=== PATIENT | male | born 1990 | race Caucasian/White ===

== ENCOUNTER 2019-02-12 14:14 | Inpatient (IN) | payer MEDICAID ==
--- NOTE | 2019-02-12 15:13 | EDM.PDOC ---
ED HPI GENERAL MEDICAL PROBLEM - General Chief Complaint: Abdominal Pain Stated Complaint: RIGHT SIDE ABD PAIN Time Seen by Provider: 02/12/19 15:00 Source of Information: Reports: Patient, Old Records History Limitations: Reports: No Limitations - History of Present Illness INITIAL COMMENTS - FREE TEXT/NARRATIVE: 28 yo male with a pHx of gastric bypass presents with RLQ abdominal pain that began on and has progressed. Had diarrhea the first 2 days, but not today. No vomiting, but has mild nausea today. No temp over 100F. No other abdominal surgeries. Pain is increased with coughing. No self tx. Pain is a little worse with eating. Onset: Gradual Onset Date: 02/10/19 Duration: Day(s): (2+), Getting Worse Location: Reports: Abdomen (RLQ) Quality: Reports: Ache Severity: Moderate Improves with: Reports: Rest Worsens with: Reports: Movement Context: Reports: Other (See HPI) Associated Symptoms: Reports: Malaise, Nausea/Vomiting (no vomiting). Denies: Fever/Chills Treatments COPY MESSENGER: Reports: Other (see below) (none) Right Lower Abdomen Pain Score (Numeric/FACES): 7 - Related Data Allergies Allergy/AdvReac Type Severity Reaction Status Date / Time pantoprazole [From Protonix] Allergy Muscle Verified 02/12/19 14:58 Aches prochlorperazine Allergy Muscle Verified 02/12/19 14:58 [From Compazine] Aches Home Meds: Home Meds Citalopram Hydrobromide [Celexa] 40 mg PO DAILY 03/10/18 [History] busPIRone [Buspar] 10 mg PO TID 03/10/18 [History] Dextroamphetamine/Amphetamine [Adderall 30 mg Tablet] 30 mg PO DAILY 02/12/19 [ History] Past Medical History HEENT History: Reports: Impaired Vision Other HEENT History: wears glasses Respiratory History: Reports: Asthma, Sleep Apnea Psychiatric History: Reports: Anxiety, Depression, Psych Hospitalization(s), Suicidal Ideation Endocrine/Metabolic History: Reports: Obesity/BMI 30+ Dermatologic History: Reports: None - Infectious Disease History Infectious Disease History: Reports: Chicken Pox, Influenza - Past Surgical History HEENT Surgical History: Reports: Tonsillectomy Respiratory Surgical History: Reports: None Endocrine Surgical History: Reports: None Dermatological Surgical History: Reports: Other (See Below) Social & Family History - Family History Cardiac: Reports: Bypass, Hypertension, [place] Respiratory: Reports: COPD Musculoskeletal: Reports: Fibromyalgia Endocrine/Metabolic: Reports: Diabetes, type II, Obesity/MBI 30+ - Caffeine Use Caffeine Use: Reports: None ED ROS GENERAL - Review of Systems Review Of Systems: See Below Constitutional: Reports: Malaise HEENT: Reports: No Symptoms Respiratory: Reports: No Symptoms Cardiovascular: Reports: No Symptoms GI/Abdominal: Reports: Abdominal Pain, Diarrhea (not today), Nausea. Denies: Bloody Stool, Vomiting : Reports: No Symptoms Musculoskeletal: Reports: No Symptoms Skin: Reports: No Symptoms Neurological: Reports: No Symptoms Psychiatric: Reports: No Symptoms ED EXAM, GI/ABD - Physical Exam Exam: See Below Exam Limited By: No Limitations General Appearance: Alert, WD/WN, No Apparent Distress Eyes: Bilateral: Normal Appearance Ears: Normal External Exam, Normal Canal, Hearing Grossly Normal, Normal TMs Nose: Normal Inspection, No Blood Throat/Mouth: Normal Inspection, Normal Lips, Normal Oropharynx, Normal Voice, No Airway Compromise Head: Atraumatic, Normocephalic Neck: Normal Inspection Respiratory/Chest: No Respiratory Distress, Lungs Clear, Normal Breath Sounds, No Accessory Muscle Use Cardiovascular: Regular Rate, Rhythm, No Edema GI/Abdominal Exam: Normal Bowel Sounds, Soft, No Distention, Rebound (? very subtle(hurts with coughing)), Tender (RLQ). No: Distended, Guarding, Rigid Back Exam: Normal Inspection. No: CVA Tenderness (R), CVA Tenderness (L) Extremities: Normal Inspection, Normal Range of Motion, Non-Tender, No Pedal Edema Neurological: Alert, Oriented, CN II-XII Intact, Normal Cognition, No Motor/ Sensory Deficits Psychiatric: Normal Affect, Normal Mood Skin Exam: Warm, Dry, Intact, Normal Color, No Rash Course - Vital Signs Text/Narrative:: Dr. Santamaria paged @ 0872h Last Recorded V/S: Last Vital Signs Temp 37.9 C 02/12/19 16:51 Pulse 86 02/12/19 16:51 Resp 16 02/12/19 16:51 BP 120/76 02/12/19 16:51 Pulse Ox 98 02/12/19 16:51 - Orders/Labs/Meds Orders: Active Orders 24 hr Category Date Time Status Iopamidol [Isovue-300 (61%)] Med 02/12/19 16:15 Active 100 ml IV . DIRECTED Sodium Chloride 0.9% [Normal Saline] 100 ml Med 02/12/19 16:15 Active IV ASDIRECTED Medication Orders Sodium Chloride (Normal Saline) 100 mls @ 3 mls/sec IV ASDIRECTED HAI Last Admin: 02/12/19 16:26 Dose: 3 mls/sec Iopamidol (Isovue-300 (61%)) 100 ml IV . DIRECTED HAI Last Admin: 02/12/19 16:28 Dose: 100 ml Labs: Laboratory Tests 02/12/19 02/12/19 Range/Units 15:24 15:24 WBC 11.8 H (4.5-11.0) K/uL RBC 4.45 (4.30-5.90) M/uL Hgb 12.4 (12.0-15.0) g/dL Hct 38.1 L (40.0-54.0) % MCV 86 (80-98) fL MCH 28 (27-31) pg MCHC 33 (32-36) % Plt Count 230 (150-400) K/uL Sodium 140 (140-148) mmol/L Potassium 3.9 (3.6-5.2) mmol/L Chloride 105 (100-108) mmol/L Carbon Dioxide 27 (21-32) mmol/L Anion Gap 8.2 (5.0-14.0) mmol/L BUN 13 (7-18) mg/dL Creatinine 0.8 (0.8-1.3) mg/dL Est Cr Clr Drug Dosing 150.89 mL/min Estimated GFR (MDRD) > 60 (>60) Glucose 88 (74-106) mg/dL Calcium 8.0 L (8.5-10.1) mg/dL C-Reactive Protein 3.67 H (0.0-0.3) mg/dL Meds: Medications Generic Name Dose Route Start Last Admin Trade Name Freq PRN Reason Stop Dose Admin Sodium Chloride 100 mls @ 3 mls/sec 02/12/19 16:15 02/12/19 16:26 Normal Saline IV 3 mls/sec ASDIRECTED HAI Administration Iopamidol 100 ml 02/12/19 16:15 02/12/19 16:28 Isovue-300 (61%) IV 100 ml . DIRECTED HAI Administration Discontinued Medications Generic Name Dose Route Start Last Admin Trade Name Polo PRN Reason Stop Dose Admin Hydromorphone HCl 0.5 mg 02/12/19 15:50 Dilaudid IVPUSH 02/12/19 15:51 ONETIME ONE Metoclopramide HCl 5 mg 02/12/19 15:50 Reglan IVPUSH 02/12/19 15:51 ONETIME ONE Sodium Chloride 10 ml 02/12/19 16:12 02/12/19 16:29 Saline Flush FLUSH 02/12/19 16:13 10 ml ONETIME ONE Administration - Radiology Interpretation Free Text/Narrative:: CT abd/pelvis with IV contrast-acute appendicitis CT Results Date: 02/12/19 CT Results Time: 16:51 Departure - Departure Time of Disposition: 16:55 Disposition: Admitted As Inpatient 66 Condition: Fair Clinical Impression: Acute appendicitis Qualifiers: Acute appendicitis type: with localized peritonitis Appendicitis gangrene presence: unspecified whether gangrene present Appendicitis perforation presence : without perforation Appendicitis abscess presence: without abscess Qualified Code(s): K35.30 - Acute appendicitis with localized peritonitis, without perforation or gangrene - Discharge Information Referrals: PCP,None [Primary Care Provider] - Forms: ED Department Discharge - My Orders Last 24 Hours: My Active Orders 02/12/19 16:15 Iopamidol [Isovue-300 (61%)] 100 ml IV . DIRECTED Sodium Chloride 0.9% [Normal Saline] 100 ml IV ASDIRECTED - Assessment/Plan Last 24 Hours: My Active Orders 02/12/19 16:15 Iopamidol [Isovue-300 (61%)] 100 ml IV . DIRECTED Sodium Chloride 0.9% [Normal Saline] 100 ml IV ASDIRECTED
[2019-02-12] MEDS ORDERED: HYDROmorphone 0.5 MG/0.5 ML Syringe IVPUSH ONE (15:50)
[2019-02-12] MEDS ORDERED: Metoclopramide 10 MG/2 ML SDV IVPUSH ONE (15:50)
[2019-02-12] MEDS ORDERED: Sodium Chloride 0.9% 10 ML Syringe FLUSH ONE (16:12)
[2019-02-12] MEDS ORDERED: Iopamidol 612 MG/ML 100 ML Bottle IV SCH (16:15)
[2019-02-12] MEDS ORDERED: Sodium Chloride 0.9% 100 ML IV SCH (16:15)
--- NOTE | 2019-02-12 16:52 | CRLCT ---
HISTORY: Right lower quadrant abdominal pain. TECHNIQUE: Intravenous contrast enhanced CT of the abdomen and pelvis. 91 mL of Isovue-300 intravenous contrast administered. COMPARISON: No prior. FINDINGS: There are prominent kian appendiceal inflammatory changes with the appendix dilated to approximately 9 mm. Findings compatible with appendicitis. There is no free air. No well-formed periappendiceal collection. Trace pelvic free fluid. Postsurgical changes of gastric bypass. There is no small bowel obstruction. No diverticulitis. - No focal liver parenchymal abnormality. No biliary ductal dilatation. Gallbladder is mildly distended. Spleen and adrenal glands are normal. There is no focal pancreatic abnormality. Symmetric nephrograms. No renal mass or hydronephrosis. Urinary bladder is nondistended. Left pelvic calcification is likely a phlebolith. - There is no abdominal aortic aneurysm. Small mesenteric and retroperitoneal lymph nodes may be reactive. - No infiltrate within the lung bases nor pleural effusion. - No acute bony abnormality. IMPRESSION: 1. Acute appendicitis with prominent periappendiceal inflammatory changes and appendiceal dilatation. No well-formed periappendiceal abscess or free air. 2. Trace pelvic free fluid. 3. Postsurgical changes of gastric bypass. 4. Findings discussed with Dr. Scanlon on 02/12/2019 at 16:50 hours. Dictated by Umer Mueller MD @ 02/12/2019 4:51:23 PM Please note that all CT scans at this facility use dose modulation, iterative reconstruction, and/or weight-based dosing when appropriate to reduce radiation dose to as low as reasonably achievable. Dictated by: Umer Mueller MD @ 02/12/2019 16:51:35 (Electronically Signed)
[2019-02-12] MEDS: HYDROmorphone 1 MG/ML Syringe IVPUSH PRN ×2 (17:30→21:11)
[2019-02-12] MEDS: Acetaminophen 500 MG Tab PO PRN (18:05)
[2019-02-12] MEDS: Dextrose 5%-Lactated Ringers 1,000 ML IV SCH (18:06)
[2019-02-12] MEDS: Ampicillin/Sulbactam Na 3 GM in Sodium Chloride 0.9% 100 ML IV SCH (19:36)
[2019-02-13] MEDS: HYDROmorphone 1 MG/ML Syringe IVPUSH PRN ×8 (00:23→22:29)
[2019-02-13] MEDS: Acetaminophen 500 MG Tab PO PRN (00:23)
[2019-02-13] MEDS: Ampicillin/Sulbactam Na 3 GM in Sodium Chloride 0.9% 100 ML IV SCH ×4 (00:24→18:22)
[2019-02-13] MEDS: Dextrose 5%-Lactated Ringers 1,000 ML IV SCH ×3 (01:06→21:26)
[2019-02-13] MEDS: Ondansetron 4 MG/2 ML SDV IVPUSH PRN ×2 (01:06→22:29)
[2019-02-13] MEDS ORDERED: Bupivacaine 0.5%/EPINEPHrine 1:200,000 50 ML MDV ONE (06:51)
[2019-02-13] MEDS ORDERED: fentaNYL 250 MCG/5 ML SDV ONE (06:57)
[2019-02-13] MEDS ORDERED: Midazolam 1 MG/ML 2 ML SDV ONE (06:57)
[2019-02-13] MEDS ORDERED: Dexamethasone 4 MG/ML SDV ONE (06:58)
[2019-02-13] MEDS ORDERED: Ondansetron 4 MG/2 ML SDV ONE (06:58)
[2019-02-13] MEDS ORDERED: Propofol 200 MG/20 ML SDV ONE (06:58)
[2019-02-13] MEDS ORDERED: Lidocaine 2% 5 ML SDV ONE (06:58)
[2019-02-13] MEDS ORDERED: Rocuronium 50 MG/5 ML Vial ONE (06:58)
[2019-02-13] MEDS ORDERED: Glycopyrrolate 0.2 MG/ML 5 ML MDV ONE (07:36)
[2019-02-13] MEDS ORDERED: Neostigmine Methylsulfate 1 MG/ML 5 ML Syringe ONE (07:36)
[2019-02-13] MEDS ORDERED: Meropenem 500 MG SDV ONE (08:34)
[2019-02-13] MEDS ORDERED: Ketorolac 60 MG/2 ML SDV ONE (08:39)
[2019-02-13] MEDS ORDERED: fentaNYL 100 MCG/2 ML SDV ONE (08:41)
[2019-02-13] MEDS ORDERED: HYDROmorphone 0.5 MG/0.5 ML Syringe IVPUSH PRN (10:02)
[2019-02-13] MEDS: Acetaminophen 500 MG Tab PO SCH ×3 (10:17→21:20)
[2019-02-13] MEDS ORDERED: hydrOXYzine HCl 100 MG/2 ML SDV IM PRN (10:37)
[2019-02-13] MEDS ORDERED: Meperidine PF 100 MG/ML Syringe IM ONE (10:45)
[2019-02-13] MEDS: Docusate Sodium 100 MG Cap PO SCH ×2 (13:29→21:20)
[2019-02-13] MEDS: Celecoxib 200 MG Cap PO SCH (13:30)
[2019-02-13] MEDS: Bisacodyl 5 MG Tab PO SCH (21:20)
--- NOTE | 2019-02-13 22:10 | PN ---
DATE OF SERVICE: 02/13/2019 The patient was admitted overnight with clinical and CT findings of acute appendicitis. Otherwise, he is clinically stable. He is running some fevers at this point. The plan will be to proceed with laparoscopy, laparotomy if necessary and appendectomy, with other procedures as indicated based on the operative findings. Potential risks of the procedure including bleeding, infection, leaks from various GI tract closures, and such were reviewed, and the patient wishes to proceed. Surgery will be undertaken this morning. He will have a TAP block along with ongoing antibiotic administration. Khris Santamaria MD /[id number]
[2019-02-14] MEDS: Ampicillin/Sulbactam Na 3 GM in Sodium Chloride 0.9% 100 ML IV SCH ×3 (00:03→12:29)
[2019-02-14] MEDS: HYDROmorphone 1 MG/ML Syringe IVPUSH PRN ×2 (02:22→05:49)
[2019-02-14] MEDS: Acetaminophen 500 MG Tab PO SCH ×2 (03:09→09:53)
[2019-02-14] MEDS: Celecoxib 200 MG Cap PO SCH (08:07)
[2019-02-14] MEDS: Bisacodyl 5 MG Tab PO SCH (08:08)
[2019-02-14] MEDS: Docusate Sodium 100 MG Cap PO SCH (08:08)
[2019-02-14] MEDS: HYDROmorphone 2 MG Tab PO PRN ×2 (08:09→11:55)
--- NOTE | 2019-02-14 10:27 | PN ---
DATE OF SERVICE: 02/14/2019 SUBJECTIVE: Madi is postoperative day #1. He is up ambulating in the room. He is requesting to go home today. Oral intake 1600, urine output 150, and MYRIAM drain put out 80 mL of a light pink drainage. REVIEW OF SYSTEMS: Remainder of review of systems negative for any pertinent positives and negatives. OBJECTIVE: GENERAL: Madi Garrido is a 28-year-old male. VITAL SIGNS: TPR is 97.2, 49, 16, blood pressure 105/68. HEENT: Negative. NECK: Supple. HEART: Regular rate and rhythm. LUNGS: Clear. ABDOMEN: Dressings dry and intact. Abdominal binder is on. EXTREMITIES: Without peripheral edema. ASSESSMENT: 1. Diagnostic laparoscopy with partial . 2. Drainage of pericecal abscess for postoperative diagnosis perforated appendicitis with inflammation, necrosis extending into cecum and pericecal abscess. Date of surgery 02/13/2019. Surgeon, Khris Santamaria MD. PLAN: 1. Discontinue IV Dilaudid. 2. Dilaudid 2 mg 1 to 2 every 4 hours p.r.n. pain. 3. Dressing off, may shower. 4. Step 2 gastric bypass diet. 5. We will evaluate p.r.n. or in a.m. Bertha Blount PA-C /[id number]
[2019-02-14] MEDS ORDERED: Magnesium Hydroxide 400 MG/5 ML Susp 30 ML Cup PO SCH (13:15)
--- NOTE | 2019-02-14 16:27 | DISCH ---
ADMISSION DIAGNOSES: Acute appendicitis, status post Alejandro-en-Y gastric bypass surgery, unspecified surgical malabsorption, B12 deficiency, attention deficit disorder. DISCHARGE DIAGNOSES: 1. Diagnostic laparoscopy with partial cecectomy. 2. Drainage of pericecal abscess for a postoperative diagnosis of perforated appendicitis with inflammation and necrosis extending into the cecum and perirectal abscess. Date of surgery, 02/13/2019. Surgeon, Khris Santamaria MD. HISTORY: Madi Garrido is a 28-year-old male, who presented to the emergency room with a 2-day history of right lower quadrant abdominal pain. After preoperative evaluation, discussion of possible risks and possible complications, he wished to proceed with surgical procedure. HOSPITAL COURSE: Surgery was on 02/13/2019. He had no operative complications. On postoperative day 1, he was up ambulating, tolerating a clear liquid diet, wished to be changed to oral pain medication, and he did have bowel stimulation. He requested to be discharged to home. PHYSICAL EXAMINATION: GENERAL: Madi is a 28-year-old male. VITAL SIGNS: Height is 6 feet, weight is 196 pounds. TPR 97.5, 60, 16. Blood pressure 116/54. HEENT: Negative. NECK: Supple. HEART: Regular rate and rhythm. LUNGS: Clear. ABDOMEN: Dressings dry and intact. MYRIAM drain intact at time of examination. EXTREMITIES: Without peripheral edema. DISPOSITION: Discharged home. CONDITION: Stable and improving. FOLLOWUP: Followup appointment with Khris Santamaria MD, on 02/20/2019 at 8 a.m. Appointment will be at the Emergency Room at [facility]. HOME MEDICATIONS: 1. Dilaudid 2 mg 1 every 6 hours p.r.n. pain, #28. 2. Tylenol 1000 mg oral q.6 hours p.r.n. pain. 3. Augmentin 875 mg 1 tablet b.i.d. for 5 days. 4. Celebrex 200 mg oral, #14. He is to resume his home medications of citalopram 40 mg oral daily, Adderall 30 mg oral daily, buspirone 10 mg 3 times a day. DIET: Step 2 gastric bypass diet, advance as tolerated. Drink 8 to 10 glasses of water a day. ACTIVITY: No lifting greater than 10 pounds for 4 weeks. OTHER ACTIVITY: Walk at least 6 times daily inside your home. Driving: Do not drive for 1 week and while on pain medication. Shower/bathing: May shower. DISCHARGE INSTRUCTIONS: Notify provider if any fever, increased pain, swelling, redness, nausea, vomiting. Keep site clean and dry. Wear abdominal binder for 2 weeks and then as tolerated. SPECIAL INSTRUCTION: Use incentive spirometer 10 times every hour while awake for 1 week.
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
== END 2019-02-14 14:45 | disposition home or self-care (01) | DRG 329 ==
LOC: JP.ED 14:14 → JP.MS 16:00
PROVIDERS: ADMIT Surgery; ATTEND Surgery
PROC: 0DTJ4ZZ Resection of Appendix, Percutaneous Endoscopic Approach (ICD-10-PCS; principal; 2019-02-13)
PROC: 0DBH4ZZ Excision of Cecum, Percutaneous Endoscopic Approach (ICD-10-PCS; 2019-02-13)
PROC: 0D9W4ZZ Drainage of Peritoneum, Percutaneous Endoscopic Approach (ICD-10-PCS; 2019-02-13)
DX: K35.33 Acute appendicitis with perforation, localized peritonitis, and gangrene, with abscess (principal); K55.049 Acute infarction of large intestine, extent unspecified; J45.909 Unspecified asthma, uncomplicated; H54.7 Unspecified visual loss; G47.30 Sleep apnea, unspecified; F41.9 Anxiety disorder, unspecified; F32.9 Major depressive disorder, single episode, unspecified; E66.9 Obesity, unspecified; Z90.89 Acquired absence of other organs; Z88.8 Allergy status to other drugs, medicaments and biological substances; Z79.899 Other long term (current) drug therapy; Z68.26 Body mass index [BMI] 26.0-26.9, adult
CPT/HCPCS: 36415; 74177; 80048; 85027; 86140; 87070; 87075; 87077; 87186; 87205; 88304; 94762; 99285-25; A9270-GY; J0171; J0295; J1100; J1170; J1885; J2001; J2175; J2185; J2250; J2405; J2704; J2710; J2765; J2795; J3010; J3410; J3490; J7030; J7042; J7050; Q9967

== ENCOUNTER 2019-10-18 16:57 | Inpatient (IN) | payer MEDICAID ==
[2019-10-18] MEDS ORDERED: HYDROmorphone 0.5 MG/0.5 ML Syringe IVPUSH ONE ×3 (17:54→20:33)
[2019-10-18] MEDS ORDERED: Promethazine 12.5 MG in Sodium Chloride 0.9% 50 ML IV STA (17:55)
[2019-10-18] MEDS ORDERED: Lactated Ringers 1,000 ML IV SCH (18:00)
--- NOTE | 2019-10-18 18:05 | EDM.PDOC ---
<Spencer Scanlon G - Last Filed: 10/18/19 17:59> ED HPI GENERAL MEDICAL PROBLEM - General Chief Complaint: Abdominal Pain Stated Complaint: ABD PAIN,NAUSEA Time Seen by Provider: 10/18/19 17:50 Source of Information: Reports: Patient, Family, Old Records, RN History Limitations: Reports: No Limitations - History of Present Illness INITIAL COMMENTS - FREE TEXT/NARRATIVE: 29 yo male presents with abdominal pain that began about 2 hrs ago and has been progressive since its onset. He has nausea as well. These sx's were preceded by diarrhea that began yesterday. He has a pHx of Alejandro-N-Y gastric bypass. No fever. No melena or hematochezia. No hx of pain like this. Onset: Today, Sudden Onset Date: 10/18/19 Duration: Hour(s): (2+), Getting Worse Location: Reports: Abdomen Quality: Reports: Ache Severity: Severe Improves with: Reports: None Worsens with: Reports: Other (? time) Context: Reports: Other (See HPI) Associated Symptoms: Reports: Nausea/Vomiting (no vomiting). Denies: Fever/Chills Treatments [employer]: Reports: Other (see below) (Oral Zofran ) lower back Pain Score (Numeric/FACES): 7 - Related Data Allergies Allergy/AdvReac Type Severity Reaction Status Date / Time pantoprazole [From Protonix] Allergy Muscle Verified 10/18/19 17:22 Aches prochlorperazine Allergy Muscle Verified 10/18/19 17:22 [From Compazine] Aches Home Meds: Home Meds Citalopram Hydrobromide [Celexa] 40 mg PO DAILY 03/10/18 [History] busPIRone [Buspar] 10 mg PO TID PRN 03/10/18 [History] Dextroamphetamine/Amphetamine [Adderall] 30 mg PO DAILY 02/12/19 [History] Acetaminophen [Tylenol Extra Strength] 1,000 mg PO Q6H tablet 02/14/19 [Rx] Past Medical History HEENT History: Reports: Impaired Vision Other HEENT History: wears glasses Respiratory History: Reports: Asthma, Sleep Apnea Musculoskeletal History: Reports: Fracture, Other (See Below) Other Musculoskeletal History: fx collar bone ankle finger Psychiatric History: Reports: Anxiety, Depression, Psych Hospitalization(s), Suicidal Ideation Endocrine/Metabolic History: Reports: Obesity/BMI 30+ Dermatologic History: Reports: None - Infectious Disease History Infectious Disease History: Reports: Chicken Pox, Influenza - Past Surgical History HEENT Surgical History: Reports: Tonsillectomy Respiratory Surgical History: Reports: None GI Surgical History: Reports: Appendectomy, Bariatric Procedure Endocrine Surgical History: Reports: None Social & Family History - Family History Cardiac: Reports: Bypass, Hypertension, [place] Respiratory: Reports: COPD Musculoskeletal: Reports: Fibromyalgia Endocrine/Metabolic: Reports: Diabetes, type II, Obesity/MBI 30+ - Tobacco Use Smoking Status *Q: Current Every Day Smoker Years of Tobacco use: 10 Packs/Tins Daily: 0.2 - Caffeine Use Caffeine Use: Reports: None - Recreational Drug Use Recreational Drug Type: Reports: Marijuana/Hashish Recreational Drug Use Frequency: Weekly ED ROS GENERAL - Review of Systems Review Of Systems: See Below Constitutional: Reports: No Symptoms HEENT: Reports: No Symptoms Respiratory: Reports: No Symptoms Cardiovascular: Reports: No Symptoms Endocrine: Reports: No Symptoms GI/Abdominal: Reports: Abdominal Pain, Diarrhea, Nausea. Denies: Black Stool, Bloody Stool, Constipation, Distension, Flatus, Hematemesis, Melena, Vomiting : Reports: No Symptoms Musculoskeletal: Reports: No Symptoms Skin: Reports: No Symptoms Neurological: Reports: No Symptoms ED EXAM, GI/ABD - Physical Exam Exam: See Below Exam Limited By: No Limitations General Appearance: Alert, WD/WN, No Apparent Distress Eyes: Bilateral: Normal Appearance Ears: Normal External Exam, Normal Canal, Hearing Grossly Normal Nose: Normal Inspection, No Blood Throat/Mouth: Normal Inspection, Normal Lips, Normal Oropharynx, Normal Voice, No Airway Compromise Head: Atraumatic, Normocephalic Neck: Normal Inspection Respiratory/Chest: No Respiratory Distress, Lungs Clear, Normal Breath Sounds, No Accessory Muscle Use Cardiovascular: Regular Rate, Rhythm, No Edema GI/Abdominal Exam: Normal Bowel Sounds, Soft, No Distention, Tender. No: Non- Tender, Distended, Guarding, Rigid, Rebound Back Exam: Normal Inspection Extremities: Normal Inspection, Normal Range of Motion, Non-Tender, No Pedal Edema Neurological: Alert, Oriented, CN II-XII Intact, Normal Cognition, No Motor/Sensory Deficits Psychiatric: Normal Affect, Normal Mood Skin Exam: Warm, Dry, Intact, Normal Color, No Rash Departure - Departure Disposition: Admitted As Inpatient 66 Clinical Impression: Pancreatitis - Discharge Information Referrals: Anselmo Alcantara MD [Primary Care Provider] - Forms: ED Department Discharge Care Plan Goals: admit to Dr Alcantara Sepsis Event Note (ED) - Evaluation Sepsis Screening Result: No Definite Risk <Tammie Albert - Last Filed: 10/18/19 23:12> Course - Vital Signs Last Recorded V/S: Last Vital Signs Temp 35.6 C L 10/18/19 17:28 Pulse 52 L 10/18/19 21:01 Resp 12 10/18/19 18:25 BP 149/93 H 10/18/19 21:01 Pulse Ox 98 10/18/19 18:25 - Orders/Labs/Meds Orders: Active Orders 24 hr Category Date Time Status Abdomen Ltd [US] Stat Exams 10/18/19 22:09 Ordered Iopamidol [Isovue-300 (61%)] Med 10/18/19 20:15 Active 100 ml IV . DIRECTED Lactated Ringers [Ringers, Lactated] 1,000 ml Med 10/18/19 18:00 Active IV ASDIRECTED Sodium Chloride 0.9% [Normal Saline] 1,000 ml Med 10/18/19 19:30 Active IV ASDIRECTED Sodium Chloride 0.9% [Normal Saline] 80 ml Med 10/18/19 20:15 Active IV ASDIRECTED Sodium Chloride 0.9% [Saline Flush] Med 10/18/19 20:13 Active 10 ml FLUSH ASDIRECTED PRN Medication Orders Lactated Ringer's (Ringers, Lactated) 1,000 mls @ 500 mls/hr IV ASDIRECTED [facility] Last Admin: 10/18/19 18:19 Dose: 500 mls/hr Documented by: ARA Sodium Chloride (Normal Saline) 1,000 mls @ 999 mls/hr IV ASDIRECTED HAI Last Admin: 10/18/19 20:39 Dose: 999 mls/hr Documented by: EZIO Sodium Chloride (Normal Saline) 80 mls @ 3 mls/sec IV ASDIRECTED HAI Last Admin: 10/18/19 20:23 Dose: 3 mls/sec Documented by: ISABELA Iopamidol (Isovue-300 (61%)) 100 ml IV . DIRECTED [facility] Last Admin: 10/18/19 20:23 Dose: 100 ml Documented by: ISABELA Sodium Chloride (Saline Flush) 10 ml FLUSH ASDIRECTED PRN PRN Reason: Keep Vein Open Last Admin: 10/18/19 20:23 Dose: 10 ml Documented by: ISABELA Labs: Laboratory Tests 10/18/19 10/18/19 10/18/19 Range/Units 18:04 18:04 18:14 WBC 12.3 H (4.5-11.0) K/uL RBC 4.93 (4.30-5.90) M/uL Hgb 13.8 (12.0-15.0) g/dL Hct 41.7 (40.0-54.0) % MCV 85 (80-98) fL MCH 28 (27-31) pg MCHC 33 (32-36) % Plt Count 196 (150-400) K/uL Sodium (140-148) mmol/L Potassium (3.6-5.2) mmol/L Chloride (100-108) mmol/L Carbon Dioxide (21-32) mmol/L Anion Gap (5.0-14.0) mmol/L BUN (7-18) mg/dL Creatinine (0.8-1.3) mg/dL Est Cr Clr Drug Dosing mL/min Estimated GFR (MDRD) (>60) Glucose (74-106) mg/dL Calcium (8.5-10.1) mg/dL Total Bilirubin (0.2-1.0) mg/dL AST (15-37) U/L ALT (12-78) U/L Alkaline Phosphatase (46-116) U/L C-Reactive Protein 0.05 (0.0-0.3) mg/dL Total Protein (6.4-8.2) g/dL Albumin (3.4-5.0) g/dL Globulin (2.3-3.5) g/dL Albumin/Globulin Ratio (1.2-2.2) Amylase 92 (25-115) U/L Lipase (73-393) U/L Urine Color (YELLOW) Urine Appearance (CLEAR) Urine pH (5.0-8.0) Ur Specific [place] (1.008-1.030) Urine Protein (NEGATIVE) mg/dL Urine Glucose (UA) (NEGATIVE) mg/dL Urine Ketones (NEGATIVE) mg/dL Urine Occult Blood (NEGATIVE) Urine Nitrite (NEGATIVE) Urine Bilirubin (NEGATIVE) Urine Urobilinogen (0.2-1.0) EU/dL Ur Leukocyte Esterase (NEGATIVE) Urine RBC (0-5) Urine WBC (0-5) Ur Epithelial Cells Amorphous Sediment Urine Bacteria Urine Mucus 10/18/19 10/18/19 Range/Units 18:14 18:37 WBC (4.5-11.0) K/uL RBC (4.30-5.90) M/uL Hgb (12.0-15.0) g/dL Hct (40.0-54.0) % MCV (80-98) fL MCH (27-31) pg MCHC (32-36) % Plt Count (150-400) K/uL Sodium 143 (140-148) mmol/L Potassium 3.6 (3.6-5.2) mmol/L Chloride 103 (100-108) mmol/L Carbon Dioxide 29 (21-32) mmol/L Anion Gap 11.0 (5.0-14.0) mmol/L BUN 10 (7-18) mg/dL Creatinine 1.0 (0.8-1.3) mg/dL Est Cr Clr Drug Dosing 119.63 mL/min Estimated GFR (MDRD) > 60 (>60) Glucose 140 H (74-106) mg/dL Calcium 8.6 (8.5-10.1) mg/dL Total Bilirubin 1.0 (0.2-1.0) mg/dL AST 23 (15-37) U/L ALT 29 (12-78) U/L Alkaline Phosphatase 51 (46-116) U/L C-Reactive Protein (0.0-0.3) mg/dL Total Protein 6.9 (6.4-8.2) g/dL Albumin 4.2 (3.4-5.0) g/dL Globulin 2.7 (2.3-3.5) g/dL Albumin/Globulin Ratio 1.6 (1.2-2.2) Amylase (25-115) U/L Lipase 735 H (73-393) U/L Urine Color Yellow (YELLOW) Urine Appearance Clear (CLEAR) Urine pH 6.5 (5.0-8.0) Ur Specific [place] >= 1.030 (1.008-1.030) Urine Protein Negative (NEGATIVE) mg/dL Urine Glucose (UA) Negative (NEGATIVE) mg/dL Urine Ketones Negative (NEGATIVE) mg/dL Urine Occult Blood Negative (NEGATIVE) Urine Nitrite Negative (NEGATIVE) Urine Bilirubin Negative (NEGATIVE) Urine Urobilinogen 2.0 H (0.2-1.0) EU/dL Ur Leukocyte Esterase Negative (NEGATIVE) Urine RBC 0-5 (0-5) Urine WBC 0-5 (0-5) Ur Epithelial Cells Few Amorphous Sediment Not seen Urine Bacteria Rare Urine Mucus Few Meds: Medications Generic Name Dose Route Start Last Admin Trade Name Polo PRN Reason Stop Dose Admin Lactated Ringer's 1,000 mls @ 500 mls/hr 10/18/19 18:00 10/18/19 18:19 Ringers, Lactated IV 500 mls/hr ASDIRECTED HAI Administration Sodium Chloride 1,000 mls @ 999 mls/hr 10/18/19 19:30 10/18/19 20:39 Normal Saline IV 999 mls/hr ASDIRECTED HAI Administration Sodium Chloride 80 mls @ 3 mls/sec 10/18/19 20:15 10/18/19 20:23 Normal Saline IV 3 mls/sec ASDIRECTED HAI Administration Iopamidol 100 ml 10/18/19 20:15 10/18/19 20:23 Isovue-300 (61%) IV 100 ml . DIRECTED HAI Administration Sodium Chloride 10 ml 10/18/19 20:13 10/18/19 20:23 Saline Flush FLUSH 10 ml ASDIRECTED PRN Administration Keep Vein Open Discontinued Medications Generic Name Dose Route Start Last Admin Trade Name Polo PRN Reason Stop Dose Admin Hydromorphone HCl 0.5 mg 10/18/19 17:54 10/18/19 18:20 Dilaudid IVPUSH 10/18/19 17:55 0.5 mg ONETIME ONE Administration Hydromorphone HCl 0.5 mg 10/18/19 18:36 10/18/19 18:44 Dilaudid IVPUSH 10/18/19 18:37 0.5 mg ONETIME ONE Administration Hydromorphone HCl 0.5 mg 10/18/19 20:33 10/18/19 20:39 Dilaudid IVPUSH 10/18/19 20:34 0.5 mg ONETIME ONE Administration Promethazine HCl 12.5 mg/ 50.5 mls @ 200 mls/hr 10/18/19 17:55 10/18/19 18:22 Sodium Chloride IV 10/18/19 18:10 200 mls/hr NOW STA Administration - Re-Assessments/Exams Free Text/Narrative Re-Assessment/Exam: 10/18/19 18:42 pt continued to have alot of abdomanal pain. He has received dilaudid .5 iv. This was repeated. The ua was found to be neg. He is dehydrated. 10/18/19 18:56 10/18/19 19:48 pt has a elevated lipase. His amylase is normal. 10/18/19 22:10 Pt had a cat scan which showed a distended gall bladder. He also has some venous lymphatic congestion in the region of the superior mesenteric vessels. 10/18/19 23:11 Us showed some small stones in rhe sac portion of the gb not in the neck. He gb wall is not thick. Departure - Departure Time of Disposition: 22:14 Condition: Fair Sepsis Event Note (ED) - Focused Exam Vital Signs: Vital Signs Temp Pulse Resp BP Pulse Ox 10/18/19 21:01 52 L 149/93 H 10/18/19 18:25 53 L 12 116/78 98 10/18/19 17:28 35.6 C L 55 L 20 163/89 H 100 10/18/19 17:17 35.6 C L 55 L 20 163/89 H 100 - My Orders Last 24 Hours: My Active Orders 10/18/19 19:30 Sodium Chloride 0.9% [Normal Saline] 1,000 ml IV ASDIRECTED 10/18/19 22:09 Abdomen Ltd [US] Stat - Assessment/Plan Last 24 Hours: My Active Orders 10/18/19 19:30 Sodium Chloride 0.9% [Normal Saline] 1,000 ml IV ASDIRECTED 10/18/19 22:09 Abdomen Ltd [US] Stat
[2019-10-18] MEDS ORDERED: Sodium Chloride 0.9% 1,000 ML IV SCH (19:30)
[2019-10-18] MEDS ORDERED: Sodium Chloride 0.9% 10 ML Syringe FLUSH PRN (20:13)
[2019-10-18] MEDS ORDERED: Sodium Chloride 0.9% 80 ML IV SCH (20:15)
[2019-10-18] MEDS ORDERED: Iopamidol 612 MG/ML 100 ML Bottle IV SCH (20:15)
--- NOTE | 2019-10-18 21:26 | CRLCT ---
INDICATION: Upper abdominal pain TECHNIQUE: Axial images were obtained from the diaphragm to the pubic symphysis. Reformats were obtained in the coronal and sagittal plane. IV Contrast: 100 cc Isovue-300 Oral Contrast: None COMPARISON: Abdomen and pelvis CT 02/12/2019 FINDINGS: Lower chest: Unremarkable. Liver: Normal in contour with focal fat adjacent to the falciform ligament. Gallbladder and bile ducts: Distended without gallbladder wall thickening or pericholecystic inflammation. Spleen: Unremarkable. Normal in size without mass. Pancreas: Unremarkable. No mass or inflammation. Adrenal glands: Unremarkable. No nodules. Kidneys: Unremarkable. No masses, stones, or hydronephrosis. Vasculature: No abdominal aortic aneurysm note is made of some swirling of the superior mesenteric vasculature near the root of the mesentery. Superior mesenteric artery appears widely patent although the superior mesenteric vein appears narrowed distally (3, 44-47). GI tract: Status post gastric bypass. No dilated loops of large or small intestine. Surgical clips near the cecal tip. Very slight fat stranding along the root of the mesentery. Pelvis: Unremarkable. Bones: Unremarkable for age. IMPRESSION: 1. Status post gastric bypass without evidence of obstruction. 2. Mild swirling of the superior mesenteric vasculature with some narrowing of the superior mesenteric vein and slight adjacent fat stranding suggesting some venous/lymphatic congestion in this region. Unremarkable bowel perfusion however. Please note that all CT scans at this facility use dose modulation, iterative reconstruction, and/or weight-based dosing when appropriate to reduce radiation dose to as low as reasonably achievable. Dictated by Panakj Tse MD @ Oct 18 2019 9:10PM Signed by Dr. Pankaj Tse @ Oct 18 2019 9:25PM
--- NOTE | 2019-10-18 23:58 | CRLUS ---
INDICATION: Abdominal pain TECHNIQUE: Ultrasound abdomen limited. Sonographic images of the right upper quadrant were obtained using barlow-scale and color Doppler images. COMPARISON: A CT scan from the same date FINDINGS: Liver: Unremarkable size and echotexture. No masses. No intrahepatic biliary dilatation. Gallbladder: Cholelithiasis within a distended gallbladder. No significant gallbladder wall thickening demonstrated. Sonographic Argueta`s sign cannot be assessed due to premedication. Common bile duct: 3 mm. Pancreas: Partially obscured. No discrete abnormality seen in the visualized portions. Right kidney: 11.8 x 5.2 x 5.7 cm. Unremarkable echotexture and cortex. No masses, stones, or hydronephrosis. Vasculature: Visualized upper abdominal aorta and IVC are within normal limits. IMPRESSION: Cholelithiasis within a distended gallbladder, without significant gallbladder wall thickening. Dictated by Camilo Calzada MD @ 10/18/2019 11:56:46 PM Dictated by: Camilo Calzada MD @ 10/18/2019 23:57:25 (Electronically Signed)
[2019-10-19] MEDS ORDERED: diphenhydrAMINE 50 MG/ML SDV IVPUSH PRN
[2019-10-19] MEDS ORDERED: Ondansetron 4 MG/2 ML SDV IVPUSH PRN
[2019-10-19] MEDS: HYDROmorphone/Normal Saline 15 MG/30 ML PCA IV SCH ×2 (00:48→20:11)
[2019-10-19] MEDS: Ondansetron 4 MG/2 ML SDV IVPUSH PRN ×2 (00:54→04:07)
--- NOTE | 2019-10-19 02:29 | HP ---
IDENTIFYING DATA: Madi Garrido is a 29-year-old single male from [place], [place]. CHIEF COMPLAINT: Abdominal pain. HISTORY OF PRESENT ILLNESS: Young adult male has noted history of previous morbid obesity with Alejandro-en-Y gastric bypass surgery and resultant weight loss with surgical treatment approximately 2 years ago. He notes he was at the workplace this morning when he had development of a mild abdominal upset and nausea, and as symptoms of nausea worsened and generalized mid upper abdominal pain developed, he left work and returned home. He had development of retching without emesis and the pain became more pronounced. He then had family transfer him to the emergency room for evaluation. He notes pain is in the mid upper abdomen, some aching across the mid flanks bilaterally. He has had no fevers, chills, emesis, hematemesis, melena, or hematochezia. He has had loose stools without kim watery diarrhea. Denies a history of previous or similar occurrence. No history of peptic ulcer disease, hepatitis, jaundice, or gallbladder disease. Has had previous appendectomy. Denies recent use of alcohol. No recent use of nonsteroidal agents, minimal use of caffeine, less than 1 caffeinated beverage per day. Routine use of medications without other [id number] supplements. Has not had recent abdominal trauma by his report. PAST MEDICAL HISTORY: History of morbid obesity with Alejandro-en-Y bariatric surgery. Additionally, he has a history of depressive illness with previous hospitalization for depression, suicidal ideation, now stable. ALLERGIES: REPORTED TO PANTOPRAZOLE AND COMPAZINE WITH GENERALIZED MUSCLE ACHES NOTED. CURRENT MEDICATIONS: Include: 1. Citalopram 40 mg daily. 2. BuSpar 10 mg t.i.d. p.r.n. anxiety. 3. Adderall XR 30 mg daily. 4. Acetaminophen 1000 mg q.6 hours p.r.n. discomfort. HABITS: Smoker of 1 to 3 cigarettes daily. Caffeine use of less than 1 cup of coffee daily. Infrequent use of alcohol. Does note periodic use of marijuana without other illicit drug use. 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 He is working routinely at the local [employer], residing with family at their residence in [facility]. FAMILY HISTORY: Mother has a history of obesity with bariatric surgery. Father with a history of ischemic heart disease and chronic back disease. No recent familial history of COVID disease or known exposure. REVIEW OF SYSTEMS: NEUROLOGIC: Depressive illness controlled with pharmacologic therapy. No recent worsening dysthymic symptoms. He does wear corrective lenses. No history of stroke, seizures, or chronic headaches. CARDIAC: No history of hypertension, diabetes, congenital heart disease, rheumatic fever, murmur, chest pain, syncope, or [place]. RESPIRATORY: No asthma, emphysema, chronic cough, COVID exposure, or recent URIs. GI: As above. : No urinary urgency, frequency, or incontinence. No history of chronic renal disease. MUSCULOSKELETAL: Without arthralgias. PHYSICAL EXAMINATION: GENERAL: Appearance is that of an adult male in moderate distress secondary to abdominal discomfort. VITAL SIGNS: Initial vitals, temperature 35.6 degrees centigrade, pulse 52, respiratory rate 12, blood pressure 149/93, O2 saturation is 98% on room air. HEENT: Hearing is intact. No facial asymmetry. Sclerae anicteric. Extraocular eye movements intact. No nasal congestion. Oral mucosa is dry in appearance, noninflamed. NECK: Brisk carotid pulses. No thyromegaly, JVD, or stridor. No nuchal rigidity. LUNGS: Clear, resonant, non-tachypneic with symmetrical aeration. HEART: Regular without murmurs or gallops noted. ABDOMEN: Nondistended. Active sounds. No obvious organomegaly. No CVA tenderness. He has moderate discomfort in the upper abdomen with palpation. No guarding or rebound noted. No lower abdominal pain. Good femoral pulses. No abdominal bruits. GENITOURINARY and RECTAL: Omitted. EXTREMITIES: Warm and pink. Good turgor. Good arterial pulses. Brisk capillary refill. Non-diaphoretic. LABORATORY DATA: Labs on admission, WBC mildly elevated at 12.3, hemoglobin 13.8, hematocrit 41.7, platelet count 196,000. C-reactive protein within normal range at 0.05. Amylase 92, lipase elevated at 735. Sodium 143, potassium 3.6, BUN 10, creatinine 1, GFR greater than 60, glucose 140, calcium 8.6, alkaline phosphatase 51, AST 23, ALT 29. Urinalysis is concentrated with specific gravity of greater than 1.030, negative protein, glucose, ketones, nitrites, and leukocyte esterase. Negative dipstick for rbc's and wbc's. IMAGING: CT of the abdomen, distended gallbladder without acute inflammatory changes. Some suggested venous lymphatic congestion in the area of superior mesenteric vessels in this adult male with previous Alejandro-en-Y bariatric surgery. No obstructive process. No acute inflammatory changes are evident. No obvious ductal dilatation of the hepatobiliary system. Subsequent ultrasound suggested small stones in the gallbladder sac without evidence of stones in the neck or biliary tree. No thickening of the gallbladder wall. No obvious changes of the pancreas. IMPRESSION: 1. Abdominal pain, nausea and emesis with elevated lipase suggesting possible acute idiopathic pancreatitis. 2. History of Alejandro-en-Y bariatric surgery for morbid obesity. 3. Attention deficit disorder with chronic Adderall therapies. 4. Previous surgeries include Alejandro-en-Y bariatric surgery and appendectomy. 5. Minimal tobacco use. PLAN: The patient is admitted to the medical floor for continued supportive care. IV fluids, antiemetics, and analgesic therapies will be provided as well as ice chips to wet the mouth. We will hold on oral nutritional intake. Follow up labs with CBC, metabolic panel, and lipase are requested in a.m. and if labs show spontaneous correction and pain is diminishing, we will then advance diet slowly to standard nutritional intake. Full code status is maintained. Allow activity up as tolerated with assistance. We will follow up in the a.m. for further management of his acute abdominal presentation. Bhanu Alcantara MD /[id number]
[2019-10-19] MEDS ORDERED: Ketorolac 30 MG/ML SDV IVPUSH PRN (05:21)
[2019-10-19] MEDS ORDERED: Ketorolac 30 MG/ML SDV IVPUSH ONE (05:21)
[2019-10-19] MEDS: Sodium Chloride 0.9% 1,000 ML IV SCH ×3 (05:33→13:17)
[2019-10-19] MEDS: hydrOXYzine HCL 100 MG/2 ML SDV IM PRN ×3 (07:56→23:04)
[2019-10-19] MEDS: diphenhydrAMINE 25 MG Cap PO PRN ×2 (08:55→15:16)
[2019-10-19] MEDS ORDERED: Non-Formulary Medication 1 Each (Dextroamphetamine/Amphetamine [Adderall] 30 MG) PO SCH (09:00)
[2019-10-19] MEDS: Amphetamine/Dextroamphetamine Salts 10 MG Cap.ER PO SCH (09:44)
[2019-10-19] MEDS: Citalopram 20 MG Tab PO SCH (09:44)
[2019-10-19] MEDS ORDERED: MVI, Adult with Vitamin K 10 ML, Thiamine 200 MG, Chromium/Copper/Mang/Selen/Zn 1 ML in... IV ONE ×4 (10:30)
--- NOTE | 2019-10-19 14:26 | PN ---
DATE OF SERVICE: 10/19/2019 SUBJECTIVE: Madi was admitted through the ER on 10/18/2019. Madi was working and developed severe mid abdominal pain, nausea, and dry heaves. He was brought to the emergency room and later admitted after workup which revealed pancreatitis and distended gallbladder. Pain has been controlled with [employer], but then he reports that he wakes up in pain every 10 minutes having to push the [employer] button, so has not gotten much sleep. He did get a shot of Toradol ordered by Anselmo Alcantara MD, during the night. Remains afebrile. He is n.p.o. Labs revealed amylase of 92 down to 49 and lipase 735 down to 274 this a.m. REVIEW OF SYSTEM: HEENT: Negative. NECK: Negative. CHEST: No chest pain or shortness of breath. LUNGS: No cough. ABDOMEN: No further nausea or vomiting. Pain is mainly in the back between shoulder blades and lower flank area, mainly on the right. EXTREMITIES: No joint pain or swelling. NEUROLOGIC: No headaches, dizziness, loss of coordination. PSYCHIATRIC: Stable. OBJECTIVE: GENERAL: Madi Garrido is a 29-year-old male. Height is 6 feet, weight is 185 pounds. VITAL SIGNS: TPR at 0801, 97.4, 61, 16. Blood pressure 131/82. HEENT: Negative. NECK: Supple. HEART: Regular rate and rhythm. LUNGS: Clear. ABDOMEN: Generalized tenderness in all 4 quadrants. BACK: Tender to palpate in the left CVA area. EXTREMITIES: Without peripheral edema. SKIN: Without rash. NEUROLOGIC: Intact. PSYCHIATRIC: Negative. ASSESSMENT: 1. Pancreatitis. 2. Distended gallbladder. 3. Mesenteric swirling. 4. Status post Alejandro-en-Y gastric bypass surgery. 5. Unspecified surgical malabsorption. 6. B12 deficiency. 7. Vitamin D deficiency. 8. Attention deficit disorder. 9. Depression. PLAN: 1. Schedule and have consent signed for laparoscopic cholecystectomy with possible lysis of adhesions and small bowel resection, general anesthesia with TAP block, ketamine bolus and drip and magnesium bolus and drip, , 10/20/2019. Case to follow. Khris Santamaria MD. N.p.o. after midnight. 2. Clear liquid diet. 3. Check CMP now with ferritin, folic acid, vitamin B12, and thiamine. Check amylase, lipase, CBC, CMP, magnesium, phosphorus in a.m. Cefoxitin 2 g IV, on-call to OR in a.m. 4. Vistaril 100 mg IM q.6 hours p.r.n. pain. 5. Restart home medication, buspirone 10 mg p.o. t.i.d. p.r.n. anxiety and Adderall 30 mg p.o. daily. 6. Clear liquid diet and we will evaluate p.r.n. or in a.m. Bertha Blount PA-C /[id number]
--- NOTE | 2019-10-19 16:29 | PN ---
DATE OF SERVICE: 10/19/2019 SUBJECTIVE: A 29-year-old male was admitted with abdominal pain, nausea, and retching yesterday through the night. He had ongoing abdominal discomfort now showing interval improvement. He has had no emesis with previous Alejandro-en-Y bariatric surgery. He is passing flatus. Pain is managed with Dilaudid. Administration of Vistaril has led to improvement in his nausea. He is taking sips of clear liquids with advancement provided by [facility]. Ultrasound yesterday revealed small gallstones in the body of the gallbladder with a tortuous mesenteric vein suggesting possible small-bowel volvulus. OBJECTIVE: VITAL SIGNS: Temperature 36.3, pulse 61, blood pressure 131/82, , respiratory rate 16. GENERAL: He is awake, attentive. Some pruritus and mild inflammation of the face is noted today with generalized mild itching of the truncal area. LABORATORY DATA: Followup hemoglobin 12.9, WBC 8.7, platelet count 174,000. Sodium 142, potassium 3.8, glucose 96, calcium 8.3, creatinine 0.8, with GFR greater than 90. Lipase has shown correction at 274. IMPRESSION AND PLAN: Abdominal pain, consider acute pancreatitis, transient, maybe secondary to passed gallstone. [facility] have seen patient in consultation today and anticipate probable surgical procedure with cholecystectomy and release of small bowel volvulus in the a.m. He is tolerating clear liquid diet. Analgesic therapy is reasonably effective. In light of pruritus, Benadryl is to be offered. Continue to follow. Bhanu Alcantara MD /[id number]
[2019-10-19] MEDS ORDERED: Naloxone 0.4 MG/ML SDV IVPUSH PRN ×2 (22:53)
[2019-10-19] MEDS: busPIRone 10 MG Tab PO PRN (23:10)
[2019-10-20] MEDS: HYDROmorphone/Normal Saline 15 MG/30 ML PCA IV PRN ×3 (04:04→23:12)
[2019-10-20] MEDS: Sodium Chloride 0.9% 1,000 ML IV SCH ×3 (04:05→21:40)
[2019-10-20] MEDS ORDERED: Ketamine 500 MG/5 ML MDV IV SCH ×3 (07:30→13:00)
[2019-10-20] MEDS ORDERED: Non-Formulary Medication 1 Each IV ONE ×2 (07:30)
[2019-10-20] MEDS ORDERED: Sodium Chloride 0.9% 10 ML Syringe FLUSH ONE (07:57)
[2019-10-20] MEDS ORDERED: Sodium Chloride 0.9% 100 ML IV SCH (08:00)
[2019-10-20] MEDS ORDERED: Iopamidol 612 MG/ML 100 ML Bottle IV SCH (08:00)
[2019-10-20] MEDS: Amphetamine/Dextroamphetamine Salts 10 MG Cap.ER PO SCH (08:50)
[2019-10-20] MEDS: busPIRone 10 MG Tab PO PRN ×2 (08:50→22:21)
[2019-10-20] MEDS: Potassium Chloride 20 MEQ, Lidocaine 1% 2 ML in Sodium Chloride 0.9% 100 ML IV SCH ×3 (08:51→14:00)
[2019-10-20] MEDS: hydrOXYzine HCL 100 MG/2 ML SDV IM PRN (08:51)
[2019-10-20] MEDS: Citalopram 20 MG Tab PO SCH (08:53)
--- NOTE | 2019-10-20 09:26 | CT ---
Abdomen Pelvis w Cont CLINICAL HISTORY: Increasing amylase and lipase COMPARISON: 10/18/2019. TECHNIQUE: Axial tomographic images are obtained from the dome of the diaphragm to the pubic symphysis with IV contrast enhancement. No oral contrast was used. Auto dosage reduction and iterative reconstruction techniques employed. FINDINGS: The lung bases are clear. The liver shows no mass or biliary dilatation. The gallbladder has a normal contour. The spleen is borderline enlarged. Patient has had previous bariatric surgery. The pancreas shows no mass or inflammatory change. There is some, clockwise rotation of the descending mesenteric vessels. This is seen on previous study and is similar. There does appear to be some compression on the mesenteric vein. There is edema in the mesenteric fat. This has increased since prior study there is some fluid in the right chronic gutter and in the pelvis. This is new since prior study. The adrenal glands appear normal bilaterally. The kidneys show no mass, stones or hydronephrosis. Ureters have a normal course and caliber. Bladder has normal contour. The aorta has a normal contour. There is no suspicious retroperitoneal adenopathy. Intestinal configuration is nonacute.. IMPRESSION: Persistent counterclockwise rotation of the descending mesenteric vessels with some compression on the mesenteric vein. There is increasing edema in the mesenteric fat. There is now a small amount of peritoneal fluid Pancreas is a normal contour similar to prior study Mild splenomegaly
--- NOTE | 2019-10-20 10:33 | PN ---
DATE OF SERVICE: 10/20/2019 SUBJECTIVE: Madi had an increased amount of pain last evening. GRAIN CLEANER was increased to 0.2 and he is receiving Vistaril IM to help with the pain. He states most of the pain is in the back, although he has he states occasionally a little bit of pain across the upper abdomen. Afebrile. 1430 in, urine output 2049. OBJECTIVE: GENERAL: Madi Garrido is a 29-year-old male. He is alert and orientated. He looks like he is not feeling well. VITAL SIGNS: TPR at 0700; 98.9, 61, 16. Blood pressure 143/92. HEENT: Negative. NECK: Supple. HEART: Regular rate and rhythm. LUNGS: Clear. ABDOMEN: Nontender this morning. Pain is across the mid back area. EXTREMITIES: Without peripheral edema. ASSESSMENT: Pancreatitis. PLAN: 1. Surgery postponed today. 2. KCl 60 mEq IV today. 3. Check CT of abdomen and pelvis with IV contrast only, urgent. 4. Recheck CBC, CMP, mag, phos, amylase, and lipase in a.m. 5. Call Dr. Santamaria when CT is completed. Labs today; amylase 242 (normal 25 to 115), lipase 1806 (normal 73 to 393). Bertha Blount PA-C /[id number]
[2019-10-20] MEDS ORDERED: cefOXitin 2 GM in Sodium Chloride 0.9% 50 ML IV ONE (12:30)
[2019-10-20] MEDS ORDERED: Magnesium Sulfate 2.5 GM in Sodium Chloride 0.9% 100 ML IV SCH (13:00)
[2019-10-20] MEDS ORDERED: Ketamine 50 MG in Sodium Chloride 0.9% 49.5 ML IV SCH (13:00)
[2019-10-20] MEDS: Ondansetron 4 MG/2 ML SDV IVPUSH PRN (19:39)
[2019-10-20] MEDS: diphenhydrAMINE 25 MG Cap PO PRN (22:21)
[2019-10-21] MEDS: Sodium Chloride 0.9% 1,000 ML IV SCH (05:35)
[2019-10-21] MEDS ORDERED: Meropenem 500 MG SDV ONE (06:34)
[2019-10-21] MEDS ORDERED: Bupivacaine 0.5% 50 ML MDV ONE (06:34)
[2019-10-21] MEDS ORDERED: Lidocaine 1% with EPINEPHrine 1:100,000 50 ML MDV ONE (06:34)
[2019-10-21] MEDS ORDERED: fentaNYL 250 MCG/5 ML SDV ONE ×2 (06:58→08:18)
[2019-10-21] MEDS ORDERED: Succinylcholine 200 MG/10 ML MDV ONE (07:00)
[2019-10-21] MEDS ORDERED: Ondansetron 4 MG/2 ML SDV ONE (07:00)
[2019-10-21] MEDS ORDERED: Dexamethasone 4 MG/ML SDV ONE (07:00)
[2019-10-21] MEDS ORDERED: Glycopyrrolate 0.2 MG/ML 5 ML MDV ONE (07:00)
[2019-10-21] MEDS ORDERED: Rocuronium 50 MG/5 ML Vial ONE (07:00)
[2019-10-21] MEDS ORDERED: Propofol 200 MG/20 ML SDV ONE (07:00)
[2019-10-21] MEDS ORDERED: Neostigmine Methylsulfate 1 MG/ML 5 ML Syringe ONE (07:00)
[2019-10-21] MEDS: cefOXitin 2 GM in Sodium Chloride 0.9% 50 ML IV ONE ×2 (07:37→10:54)
[2019-10-21] MEDS ORDERED: Ketamine 500 MG/5 ML MDV IV SCH (08:00)
[2019-10-21] MEDS ORDERED: Ketamine 50 MG in Sodium Chloride 0.9% 49.5 ML IV SCH (08:00)
[2019-10-21] MEDS ORDERED: cefOXitin 2 GM in Sodium Chloride 0.9% 50 ML IV ONE (08:00)
[2019-10-21] MEDS ORDERED: Magnesium Sulfate 2.5 GM in Sodium Chloride 0.9% 100 ML IV SCH (08:00)
[2019-10-21] MEDS ORDERED: Lactated Ringers 1,000 ML ONE (08:32)
[2019-10-21] MEDS ORDERED: Tranexamic Acid 1,000 MG in Sodium Chloride 0.9% 50 ML IV ONE ×2 (09:30→12:15)
[2019-10-21] MEDS: Dextrose 5%-Lactated Ringers 1,000 ML IV SCH ×2 (11:00→21:25)
[2019-10-21] MEDS: hydrOXYzine HCL 100 MG/2 ML SDV IM PRN (11:24)
[2019-10-21] MEDS ORDERED: Albuterol/Ipratropium 3.0-0.5 MG/3 ML Neb Soln INH PRN (11:31)
[2019-10-21] MEDS ORDERED: Pantoprazole 40 MG Vial IVPUSH SCH (12:00)
[2019-10-21] MEDS ORDERED: Calcium Gluconate 10% 1 GM/10 ML SDV IVPUSH PRN (12:00)
[2019-10-21] MEDS ORDERED: Labetalol 20 MG/4 ML Syringe IVPUSH PRN (12:00)
[2019-10-21] MEDS ORDERED: Acetaminophen 500 MG Tab PO PRN (12:00)
[2019-10-21] MEDS ORDERED: Metoclopramide 10 MG/2 ML SDV IVPUSH PRN (12:00)
[2019-10-21] MEDS: Citalopram 20 MG Tab PO SCH ×2 (12:01→14:03)
[2019-10-21] MEDS: Amphetamine/Dextroamphetamine Salts 10 MG Cap.ER PO SCH ×2 (12:01→14:04)
--- NOTE | 2019-10-21 12:58 | PN ---
DATE OF SERVICE: 10/21/2019 SUBJECTIVE: Madi is n.p.o. He will be the first case for surgery today. His lipase was 2298, amylase was 190. He still reports his pain on a pain scale of 1 to 10 as a 5 to 6. Reports having increased anxiety with pending surgery. REVIEW OF SYSTEMS: Remainder of review of systems are negative for any pertinent positives and negatives. OBJECTIVE: GENERAL: Madi is a 29-year-old male. He is alert and orientated. VITAL SIGNS: TPR at 0705 are 97.9, 58, and 18; blood pressure 121/68. HEENT: Negative. NECK: Supple. HEART: Regular rate and rhythm. LUNGS: Clear. ABDOMEN: Tender in all 4 quadrants. EXTREMITIES: Negative. ASSESSMENT: 1. Partial small-bowel obstruction. 2. Pancreatitis. PLAN: Orders to be written postoperatively. Bertha Blount PA-C /[id number]
[2019-10-21] MEDS: Acetaminophen 500 MG Tab PO SCH ×2 (13:00→19:04)
[2019-10-21] MEDS: cefOXitin 2 GM in Sodium Chloride 0.9% 50 ML IV SCH ×2 (14:04→19:04)
[2019-10-21] MEDS: HYDROmorphone/Normal Saline 15 MG/30 ML PCA IV PRN (15:08)
[2019-10-21] MEDS: diphenhydrAMINE 50 MG/ML SDV IVPUSH PRN ×2 (15:28→23:53)
[2019-10-21] MEDS ORDERED: MVI, Adult with Vitamin K 10 ML, Thiamine 200 MG, Chromium/Copper/Mang/Selen/Zn 1 ML in... IV SCH ×4 (16:00)
[2019-10-22] MEDS ORDERED: Iopamidol 612 MG/ML 100 ML Bottle IV PRN (02:40)
[2019-10-22] MEDS: cefOXitin 2 GM in Sodium Chloride 0.9% 50 ML IV SCH ×2 (02:47→08:05)
[2019-10-22] MEDS: hydrOXYzine HCL 100 MG/2 ML SDV IM PRN ×5 (02:49→23:41)
[2019-10-22] MEDS: Acetaminophen 500 MG Tab PO SCH ×3 (03:02→19:27)
[2019-10-22] MEDS: Cyclobenzaprine 10 MG Tab PO PRN ×2 (03:05→19:47)
[2019-10-22] MEDS: HYDROmorphone/Normal Saline 15 MG/30 ML PCA IV PRN ×2 (04:00→17:32)
[2019-10-22] MEDS: Dextrose 5%-Lactated Ringers 1,000 ML IV SCH ×2 (04:02→09:50)
[2019-10-22] MEDS: diphenhydrAMINE 50 MG/ML SDV IVPUSH PRN ×5 (04:05→23:41)
[2019-10-22] MEDS: Citalopram 20 MG Tab PO SCH (08:06)
[2019-10-22] MEDS: Celecoxib 200 MG Cap PO SCH ×2 (08:07→21:46)
[2019-10-22] MEDS: Amphetamine/Dextroamphetamine Salts 10 MG Cap.ER PO SCH (08:07)
[2019-10-22] MEDS: Bisacodyl 5 MG Tab PO SCH ×2 (08:19→21:46)
[2019-10-22] MEDS: Docusate Sodium 100 MG Cap PO SCH ×2 (08:19→21:46)
[2019-10-22] MEDS: Multivitamins with Iron/Calcium/Folic Acid/Minerals Tab PO SCH ×2 (08:19→21:46)
--- NOTE | 2019-10-22 15:33 | PN ---
DATE OF SERVICE: 10/22/2019 The patient has been afebrile with stable vital signs. The patient has some itching from the REFRIGERATOR REPAIRMAN, change that. Otherwise, labs look good this morning. Liver function tests are essentially normal, bilirubin being 1.0 and lipase and amylase have now normalized. The MYRIAM drain is serous. Plan today will be to back down on the IV rate, begin some bowel stimulation, go to a step 3 diet. , switch over to oral pain medication tomorrow. His vitamin levels on admission were somewhat low, and we will give him some oral supplementation with MVI, which completes over the next couple of days. Khris Santamaria MD /[id number]
[2019-10-22] MEDS ORDERED: MVI, Adult with Vitamin K 10 ML, Thiamine 200 MG, Chromium/Copper/Mang/Selen/Zn 1 ML in... IV SCH ×4 (16:00)
[2019-10-23] MEDS: Dextrose 5%-Lactated Ringers 1,000 ML IV SCH (02:10)
[2019-10-23] MEDS: Acetaminophen 500 MG Tab PO SCH ×3 (03:53→19:31)
[2019-10-23] MEDS: diphenhydrAMINE 50 MG/ML SDV IVPUSH PRN (03:57)
[2019-10-23] MEDS: Cyclobenzaprine 10 MG Tab PO PRN (03:57)
[2019-10-23] MEDS: Ondansetron 4 MG/2 ML SDV IVPUSH PRN ×2 (04:03→10:05)
[2019-10-23] MEDS ORDERED: Sodium Chloride 0.9% 10 ML Syringe IV PRN (07:30)
[2019-10-23] MEDS: oxyCODONE 5 MG Tab PO PRN ×4 (08:01→20:18)
[2019-10-23] MEDS: Amphetamine/Dextroamphetamine Salts 10 MG Cap.ER PO SCH (08:01)
[2019-10-23] MEDS: Bisacodyl 5 MG Tab PO SCH ×2 (08:01→20:19)
[2019-10-23] MEDS: Citalopram 20 MG Tab PO SCH (08:02)
[2019-10-23] MEDS: Celecoxib 200 MG Cap PO SCH ×2 (08:02→20:18)
[2019-10-23] MEDS: Multivitamins with Iron/Calcium/Folic Acid/Minerals Tab PO SCH ×2 (08:02→20:18)
[2019-10-23] MEDS: Docusate Sodium 100 MG Cap PO SCH ×2 (08:02→20:18)
[2019-10-23] MEDS ORDERED: Cyanocobalamin (Vitamin B12) 1,000 MCG/ML SDV IM ONE (09:00)
[2019-10-23] MEDS: hydrOXYzine HCL 100 MG/2 ML SDV IM PRN ×2 (12:23→17:33)
[2019-10-24] MEDS: oxyCODONE 5 MG Tab PO PRN ×3 (00:24→08:44)
[2019-10-24] MEDS: Acetaminophen 500 MG Tab PO SCH (04:58)
[2019-10-24] MEDS: Multivitamins with Iron/Calcium/Folic Acid/Minerals Tab PO SCH (08:43)
[2019-10-24] MEDS: Citalopram 20 MG Tab PO SCH (08:43)
[2019-10-24] MEDS: Celecoxib 200 MG Cap PO SCH (08:43)
[2019-10-24] MEDS: Docusate Sodium 100 MG Cap PO SCH (08:43)
[2019-10-24] MEDS: Amphetamine/Dextroamphetamine Salts 10 MG Cap.ER PO SCH (08:44)
[2019-10-24] MEDS: busPIRone 10 MG Tab PO PRN (08:44)
--- NOTE | 2019-10-24 09:14 | CR ---
[facility] HISTORY: Postbariatric surgery FINDINGS: Patient swallowed water-soluble contrast. Upright views of the abdomen show no evidence of extravasation or obstruction. There is a surgical drain in place in the epigastric region. IMPRESSION: Status post bariatric surgery No extravasation or obstruction seen
--- NOTE | 2019-10-24 10:38 | DISCH ---
ADMISSION DIAGNOSES: Pancreatitis, abdominal pain, attention deficit disorder, Alejandro-en-Y gastric bypass surgery, unspecified surgical malabsorption, B12 deficiency, vitamin D deficiency. DISCHARGE DIAGNOSES: 1. Exploratory laparotomy with: a. Cholecystectomy. b. Reduction of small bowel volvulus and closure of internal hernia. c. Placement of Interceed mesh. POSTOPERATIVE DIAGNOSES: 1. Chronic cholecystitis. 2. Cholelithiasis. 3. Pancreatitis. 4. Small bowel volvulus. Date of Procedure: 10/21/2019. HISTORY: Madi Garrido is a 29-year-old male who presented to the emergency room on 10/18/2019 with sudden onset of severe abdominal pain. He was admitted to the hospital with pancreatitis. Amylase 248 and lipase 1806. The next day, his amylase was 190, lipase was 2298. With a repeat CT scan, continuation of mesenteric swirling, he was elected to have surgery. After preoperative evaluation and discussion of possible risks and possible complications, he wished to proceed with surgical procedure. Madi had the above procedure on 10/21/2019. He had no operative complications. On postoperative day 1, his IV was decreased to 100 mL per hour, liver function tests were normal, and MYRIAM drain remained serous. His vitamins were supplemented. On 10/23/2019, he was changed to oral pain medication. He did have a bowel movement and was able to be discharged to home without any complication. Afebrile, pain managed, activity good, and he received dietary instructions. PHYSICAL EXAMINATION: GENERAL: Madi Garrido is a 29-year-old male. He is alert and orientated. VITAL SIGNS: Height is 6 feet, weight is 185 pounds. TPR at 0726; 96.2, 59, 16. Blood pressure 135/86. HEENT: Negative. NECK: Supple. HEART: Regular rate and rhythm. LUNGS: Clear. ABDOMEN: Dressings dry and intact. He has Aquacel dressing on and abdominal binder is on. EXTREMITIES: Without peripheral edema. DISPOSITION: Discharged to home. CONDITION: Stable and improving. FOLLOWUP APPOINTMENT: Bertha Blount PA-C, on 10/31/2019. Call for time. HOME MEDICATIONS: 1. Celebrex 200 mg oral b.i.d., #28. 2. Oxycodone 5 mg oral every 4 hours p.r.n., #42. 3. Tylenol Extra Strength 1000 mg every 8 hours. He is to resume home medications of: 1. Adderall XR 30 mg daily. 2. Citalopram 40 mg daily. 3. BuSpar 10 mg 3 times a day p.r.n. anxiety. DIET: Step 4 gastric bypass diet. Drink 8 to 10 glasses of water a day. ACTIVITY: No lifting over 10 pounds for 6 weeks. Other activity: Walk at least 6 times daily inside your home. Driving: Do not drive for 1 week and while on pain medication. Shower/bathing: May shower. DISCHARGE INSTRUCTIONS: Notify provider if any fever, increased pain, nausea, or vomiting. Keep site clean and dry. Wear abdominal binder for 6 weeks and then as tolerated. Use incentive spirometer 10 times every hour while awake for 1 week. Take off Aquacel dressing on 10/27/2019.
--- NOTE | 2019-10-25 15:12 | PN ---
DATE OF SERVICE: 10/23/2019 The patient has been afebrile with stable vital signs. We will switch over to oral pain medication today. Has not moved his bowels yet. We will continue some bowel stimulation. MYRIAM drain will be coming out and otherwise would likely be ready for discharge home tomorrow. Khris Santamaria MD /[id number]
--- NOTE | 2019-10-25 17:04 | OR ---
DATE OF PROCEDURE: 10/21/2019 SURGEON: Khris Santamaria MD PREOPERATIVE DIAGNOSES: 1. Chronic cholecystitis and cholelithiasis, status post gallstone pancreatitis. 2. Small bowel volvulus. OPERATIVE PROCEDURE: Exploratory laparotomy with: 1. Cholecystectomy (59270). 2. Reduction of small bowel volvulus, closure of internal hernia (60043). 3. Placement of Interceed mesh to displace pelvic and abdominal wall from underlying viscera to limit recurrent adhesion formation (35212). ANESTHESIA: General. FORESTRY TREE PRUNER: Bertha Blount PA-C INDICATIONS FOR PROCEDURE: This is a 29-year-old male presenting with a combination of gallstone pancreatitis as well as small bowel volvulus, status post Alejandro-en-Y gastric bypass. The patient's pancreatitis has been persistent, but the patient's volvulus appeared to be showing more in the way of evolving edema with some continued compression of the superior mesenteric vein. Given this, at this point, we feel that we need to proceed with a laparotomy, reduction of volvulus, and cholecystectomy. At present, there is not any evidence of common bile duct stone, i.e., the liver function tests and alkaline phosphatase are essentially normal as is the total bilirubin. The plan will be to proceed with an open laparotomy through a hopefully relatively small left upper abdominal incision, reduction of volvulus, closure of internal hernia along with cholecystectomy. Potential risks of the procedure including bleeding, infection, injury to underlying viscera, possible persistence or recurrence of pancreatitis, possible recurrence of bowel obstruction over time as well as possibility of cardiopulmonary, septic, or hemorrhagic complications leading to were discussed, and the patient wishes to proceed. DETAILS OF PROCEDURE: The patient was taken to the operating room, and after general endotracheal anesthesia was induced, a Alamo catheter was inserted and the abdomen prepped and draped. A midline incision from the umbilicus to just below the xiphoid was made. The distance in this case was fairly short as the umbilicus was fairly high in the abdomen. This was carried down to the full-thickness abdominal wall. Upon entering the peritoneal cavity, the gallbladder was noted to be markedly edematous and distended. There was some edema present in the pancreas, but not overly striking amounts of edema. Much of the small bowel had a vague barlow appearance consistent with some venous hypertension, but all appeared to be viable. At this point, attention was taken to the cholecystectomy. The gallbladder was initially freed up of some adhesions between the gallbladder neck and cystohepatic triangle and the omentum. dissected out, again findings included the cystic artery and cystic duct and these were then clipped 3 times proximally and once distally and divided, and the gallbladder was then dissected off the gallbladder bed with electrocautery and this was delivered from the field. The gallbladder itself was noted to have multitude of very small stones up to around 3 to 4 mm in size, typical for those that might be associated with gallstone pancreatitis. The significant problem at this point was somewhat unexplained ongoing bleeding from the gallbladder bed beginning just above the area of the cystic artery closure. This amount is a significant amount of blood loss, but no significant change in vital signs. This was eventually controlled with combination of high-level electrocautery and then by Gelfoam and fibrin sealant. At the completion of that phase, there appeared to be good hemostasis. The patient was given 1 g of tranexamic acid around that time as well IV and will receive the 2nd dose 3 hours postoperatively to help limit potential for recurrence of the bleeding. At this point, attention was taken to the small bowel volvulus. The patient was noted to have had a volvulus between the jejunojejunostomy and associated attached limbs in a left-to- right direction underneath the mesentery of the Alejandro limb. This was eventually reduced, and at that point, all the bowel appeared to pink up nicely and no resections were needed. defects at the jejunojejunostomy mesentery and mesentery underlying the Alejandro limb were then closed with 2-0 silk running stitch. At this point, no further problems were noted. A single Florencio-Hope drain was taken to the right subcostal area and positioned adjacent to the gallbladder bed. Some omentum was then tacked up into the gallbladder bed as well. With the omentum not being available to separate the abdominal incisions in both lower abdomen and pelvis from the underlying viscera, Interceed mesh was placed, and the midline fascia then approximated with #2 Vicryl stitch, subcutaneous tissue with 2 layers of 3-0 and 4-0 Vicryl stitch, and the skin with pat. Prior to closure, bilateral transversus abdominis plane blocks had been placed and the incision was anesthetized with 1% lidocaine mixed with Marcaine as well. The patient was taken to the recovery room in satisfactory condition. Physician psychologist research assistant, Bertha Blount PA-C, played an essential role in assisting in this case, helping to position the patient, retract structures as needed, as well as suturing and cutting sutures when indicated. Her presence improved patient safety and decreased the operative time. Khris Santamaria MD /[id number]
== END 2019-10-24 09:21 | disposition home or self-care (01) | DRG 414 ==
LOC: JP.ED 16:57 → JP.MS 23:34
PROVIDERS: ADMIT Family Medicine; ATTEND Family Medicine
PROC: 0FT40ZZ Resection of Gallbladder, Open Approach (ICD-10-PCS; principal; 2019-10-21)
PROC: 0DS80ZZ Reposition Small Intestine, Open Approach (ICD-10-PCS; 2019-10-21)
PROC: 3E0M05Z Introduction of Adhesion Barrier into Peritoneal Cavity, Open Approach (ICD-10-PCS; 2019-10-21)
DX: K80.10 Calculus of gallbladder with chronic cholecystitis without obstruction (principal); K56.2 Volvulus; K85.10 Biliary acute pancreatitis without necrosis or infection; K91.2 Postsurgical malabsorption, not elsewhere classified; F98.8 Other specified behavioral and emotional disorders with onset usually occurring in childhood and adolescence; Z98.84 Bariatric surgery status; E53.8 Deficiency of other specified B group vitamins; E55.9 Vitamin D deficiency, unspecified; E66.01 Morbid (severe) obesity due to excess calories; F32.9 Major depressive disorder, single episode, unspecified; Z88.8 Allergy status to other drugs, medicaments and biological substances; Z79.899 Other long term (current) drug therapy; F17.210 Nicotine dependence, cigarettes, uncomplicated; Z68.25 Body mass index [BMI] 25.0-25.9, adult; Z20.828 Contact with and (suspected) exposure to other viral communicable diseases
CPT/HCPCS: 36415; 74177; 74177-26; 74240; 74240-26; 76705; 80048; 80053; 81001; 82150; 82306; 82607; 82728; 82746; 83690; 83735; 84100; 85025; 85027; 86140; 88304; 94762; 96361; 96374; 96375; 96376; 99284; 99285-25; A9270-GY; J0171; J0330; J0694; J1100; J1170; J1200; J1885; J2001; J2185; J2405; J2550; J2704; J2710; J2795; J3010; J3410; J3411; J3420; J3475; J3480; J3490; J7030; J7050; J7120; J7121; Q9967; U0002